=== PATIENT | female | born 1940 | race Caucasian/White ===

== ENCOUNTER → 2016-06-29 | Outpatient (CLI) | payer MEDICARE, OTHER, MEDICAID ==
[~2016-06-29] MED LIST: AMLODIPINE-BEN1 EAC1 PO; ASA325 MG PO; CYMBALTA60 MG PO; GLUCOPHAGE1000 MG PO; MIRALAX PACKET17 GM PO; NORCO 5-325 TA1 EACH PO; NOVOLIN R,100 UNITS/ SQ; OXY IR DPS5 MG PO; OYSTER SHELL C500 MG PO; PRAVACHOL10 MG PO; PROTONIX40 MG PO; SENOKOT S1 TAB PO; TYLENOL DPS325 MG PO; VITAMIN D-32000 UNI1 PO
== END | disposition home or self-care (01) ==
LOC: PTH.S 08:49
DX: Z01.818 Encounter for other preprocedural examination (principal)

== ENCOUNTER 2016-07-08 09:10 | Inpatient (IN) | payer MEDICARE, OTHER, MEDICAID ==
[~2016-07-08] VITALS: Ht 157.5 cm; Wt 99.0 kg
--- NOTE | ~2016-07-08 | OR ---
ADMIT: 08/12/2016 RM/LOC: 533 [facility] MR#: [id number] [address] SHINE TURPIN [address] [place] [address] [place] [address] Operative/Delivery Room Report SEX: F AGE: 76 : 1940 SURGERY DATE: 08/12/2016 SURGEON: Francisco Sheth MD HEAD WRESTLING COACH: Ronald Dominguez PA-C PREOPERATIVE DIAGNOSIS: Right knee osteoarthritis. POSTOPERATIVE DIAGNOSIS: Right knee osteoarthritis. PROCEDURE PERFORMED: Right total knee arthroplasty. IMPLANTS: DePuy Attune Knee System with a sized femur, size 4 tibia, size 10 poly, and a size 38 patella with cement with gentamicin. TOURNIQUET TIME: 94 minutes. ANESTHESIA: Spinal with MAC. BLOOD LOSS: 100 mL. INDICATION: Shine is a 76-year-old female, who has had bilateral knee pain that has inhibited her ability to really get around, just a significant pain for years. She has been kind of dealing with it. She came to me in clinic complaining of pain and lack of range of motion. I had gotten x-rays finding her to have end-stage osteoarthritis with bony destruction, total destruction of the joint spaces with huge osteophytes everywhere. We discussed the risks and benefits of surgical versus nonsurgical options, and she wanted to go ahead with knee replacement. We thought that was reasonable. We got preoperative clearance by her medical doctor, and then after she was preoperatively cleared, we had set her up for surgery, and she is here for that now. DESCRIPTION OF PROCEDURE: The patient was identified in the preoperative holding area. Written informed consent was confirmed, site was marked. Brought to the OR. After spinal anesthesia was induced, we prepped and draped the right leg in the usual sterile fashion. A time-out was performed. Preoperative antibiotics were confirmed. I began by examining the leg, bringing the tourniquet up to 300 and then making a midline incision and elevated a medial skin flap. Once this was done, performed my medial parapatellar arthrotomy, and then after this was done, performed a medial peel and I brought that back, as far back as I could. Exposure was very difficult because of really her lack of motion, huge osteophytes everywhere, she was really stiff, so actually had trouble getting that medial side presented very well, but I got that cleared off kind as aggressively as I could initially and then put her into extension. Removed the fat pad, the synovium, and was able to obtain a nice exposure as much as I could of the femur and was able to take off some of the osteophytes off the patella and get that everted. Brought her back up into flexion and her not being completely encased in osteophyte bone, ADMIT: 08/12/2016 RM/LOC: 533 [facility] MR#: [id number] [address] [place] [address] Operative/Delivery Room Report SEX: F AGE: 76 : 1940 so I was able to kind of approximate where the entry point for the intramedullary navin was drilled and then put my intramedullary navin device 3 degrees and 9 taken off of there. Made my distal cut, this looked really good. I had a nice cut there, and then cleared off some more of the soft tissue medially and laterally as far posterior as I could to expose the proximal tibia. We put an extramedullary guide on, measured it to take 12 off of the lateral side, and this brought me right to the defect in the posterior medial tibia. Made this cut and that got me a nice flat cut. Took off a whole bunch of huge osteophytes off the medial side of the tibial plateau and then completed my release all the way back around the back posterior medial of the tibia to complete kind of my soft tissue release of the medial side. Once I got all that done, I used a gap gas and oil checker, and I was able to get a nice concentric fit of a 6 initially in full extension, and so I was happy to just keep moving on from there. Once that was done, I brought the femoral cutting guide on, measured a 5, pinned the guide in place and then made my anterior cut. This gave me a nice looking piano christianson cut and then completed the rest of the other cuts. Removed all that bone and then used a lamina wader boot top assembler to get in posteriorly, removed a bunch of osteophytes off the back and stripped the posterior capsule to kind of do a little bit of release there to get her more extension. Once this was done, I kind of revisited, releasing a little more off that medial side again and then checked the gap gas and oil checker. I actually got it to where I was able to balance it in to a 10 in flexion and extension after getting rid of all of the osteophytes and completing my releases, and this kind of had a pretty good fit both in flexion and extension. She had full extension and was stable in flexion. Once this was done, I cut the box for the femur, measured and cut and punched for the tibia. I placed my trial components there again, and again it kind of moved real nice with a 10 in there. Put her into full extension, made my freehand cut for the patella, and then measured a 38, and drilled to the lug and then again it tracked very nicely. It was stable varus and valgus in full extension and 30 degrees of flexion, anterior posterior drawer into full flexion. It was real nice, and again it tracked very nicely (the patella did). After this was done, we had removed all the trial components, irrigated copiously with normal saline, and injected with 60 mL of Marcaine with epinephrine into the notch. Inserted the ACL, the PCL, the remnants of the medial lateral meniscus, the patellar fat pad, the quadriceps tendon, and this suprapatellar synovium, as well as a little bit in the subcutaneous tissue. After this was done, we irrigated again and then mixed the cement with gentamicin on the back table, and then cemented our final components in place. Held it for about 13 minutes until it was finally hard, and then removed the trial poly. Took the tourniquet down, ADMIT: 08/12/2016 RM/LOC: 533 [facility] MR#: [id number] [address] PAPISHINE NUNEZ [address] [place] [address] Operative/Delivery Room Report SEX: F AGE: 76 : 1940 obtained hemostasis. There was a little bit of oozing from the back but no big bleeders. I kind was able to control the bleeders to where I was comfortable with just a modest amount of bleeding yet. Placed my final poly and then closed with the knee in about 30 degrees of flexion with a 1-Vicryl for the retinacular layer and then 0-Vicryl for the deep subcu, 2-0 for the subcu, and Monocryl for the skin with a peroneal dressing. She was placed into a sterile dressing with a full leg length compression wrap. She was then brought to the postoperative care unit in good condition. No complications. Postoperatively, she will be weight bearing as tolerated. Pain control medicine will be consulted for, perioperative medical management, and she will be started on DVT prophylaxis. Anticipate her being here for about 2 nights, and then she is planning to go home on Wednesday. Francisco Sheth MD/ dionne JOB #: [id number] CC: Francisco Sheth, Attending Physician John Parks, Family Physician
[2016-08-16] MEDS ORDERED: PROTONIX40 MG PO (11:04)
[2016-08-16] MEDS ORDERED: GLUCOPHAGE1000 MG PO (11:04)
[2016-08-16] MEDS ORDERED: AMLODIPINE-BEN1 EAC1 PO (11:04)
[2016-08-16] MEDS ORDERED: ASA325 MG PO (11:05)
[2016-08-16] MEDS ORDERED: CYMBALTA60 MG PO (11:05)
[2016-08-16] MEDS ORDERED: PRAVACHOL10 MG PO (11:05)
[2016-08-16] MEDS ORDERED: MIRALAX PACKET17 GM PO (11:05)
[2016-08-16] MEDS ORDERED: OYSTER SHELL C500 MG PO (11:05)
[2016-08-16] MEDS ORDERED: VITAMIN D-32000 UNI1 PO (11:05)
[2016-08-16] MEDS ORDERED: NORCO 5-325 TA1 EACH PO (11:06)
[2016-08-16] MEDS ORDERED: OXY IR DPS5 MG PO (11:06)
[2016-08-16] MEDS ORDERED: TYLENOL DPS325 MG PO (11:06)
[2016-08-16] MEDS ORDERED: SENOKOT S1 TAB PO (11:06)
[2016-08-16] MEDS ORDERED: NOVOLIN R,100 UNITS/ SQ (11:07)
--- NOTE | 2016-09-02 10:55 | DS ---
ADMIT: 08/12/2016 RM/LOC: [address] [place] [address] MR#: [id number] [address] [place] [id number] SHINE TURPIN [address] [place] [address] General Discharge Summary SEX: F AGE: 76 : 1940 ADMISSION DATE: 08/12/2016 DISCHARGE DATE: 08/14/2016 REASON FOR ADMISSION: Elective right total knee arthroplasty after failing conservative management for osteoarthritis. PREOPERATIVE DIAGNOSIS: Right knee osteoarthritis. POSTOPERATIVE DIAGNOSIS: Right knee osteoarthritis. PROCEDURE PERFORMED: Right total knee arthroplasty. ANESTHETIC: Spinal with MAC. COMPLICATIONS: None. BLOOD LOSS: 100 mL. SURGEON: Francisco Sheth MD. COST CLERK: Ronald Dominguez PA-C HOSPITAL COURSE: Shine was admitted on 08/12/2016 for elective right total knee arthroplasty, it was completed successfully by Dr. Sheth. There were no complications. Postoperatively, she did well with pain control with oral analgesics as well as intraoperative bupivacaine with epinephrine. She participated well with physical therapy. She did as anticipated experience mild acute surgical blood-loss anemia, hemoglobin dropped to 9.6, but remained hemodynamically stable, did not require transfusion. By postop day #2, she was comfortable with her pain control, progressing with her exercises, and stable and ready for discharge with plans for outpatient therapy. DISCHARGE MEDICATIONS: 1. Amlodipine/benazepril 10/40 daily. 2. Pantoprazole 40 mg b.i.d. 3. Metformin 1000 mg twice daily. 4. Duloxetine 60 mg daily. 5. Pravastatin 10 mg daily. 6. Aspirin 325 mg daily. ADMIT: 08/12/2016 RM/LOC: 3 [facility] MR#: [id number] [place] [address] SHINE TURPIN [facility] [place] [address] General Discharge Summary SEX: F AGE: 76 : 1940 7. Vitamin D3, 2000 units daily. 8. Calcium 500 daily. 9. MiraLAX p.r.n. 10.Senokot b.i.d. p.r.n. 11.Tylenol 650 mg q.6 p.r.n. 12.OxyIR 5 mg 1 to 2 q.4 p.r.n. 13.Hydrocodone/acetaminophen 5/325, 1 to 2 q.6 p.r.n. 14.NovoLog sliding scale as directed. DISCHARGE INSTRUCTIONS: Verbally undergo outpatient therapy per total knee arthroplasty protocol. Follow up in the orthopedic office in 2 weeks for wound check, 6 weeks with x-rays. Follow up primary care as directed. Ronald Dominguez PA-C / Francisco Sheth MD / db JOB #: [id number] CC: Francisco Sheth MD, Attending Physician John Parks MD, Family Physician
== END 2016-08-14 15:30 | disposition home or self-care (01) | DRG 470 ==
LOC: WOR 08-12 05:18 → 5MS 08-12 05:18
PROVIDERS: ADMIT Student in an Organized Health Care Education/Training Program
PROC: 0SRC0J9 Replacement of Right Knee Joint with Synthetic Substitute, Cemented, Open Approach (ICD-10-PCS; principal; 2016-08-12)
DX: M17.11 Unilateral primary osteoarthritis, right knee (principal); E11.9 Type 2 diabetes mellitus without complications; D64.9 Anemia, unspecified; D62 Acute posthemorrhagic anemia; I10 Essential (primary) hypertension; E66.9 Obesity, unspecified; K21.9 Gastro-esophageal reflux disease without esophagitis; Z68.39 Body mass index [BMI] 39.0-39.9, adult